=== PATIENT | male | born 1955 | race Caucasian/White ===

== ENCOUNTER 2017-03-01 00:58 | Emergency (ER) | payer BC ==
[2017-03-01] MEDS ORDERED: Acetaminophen/HYDROcodone 325-7.5 MG Tab PO ONE (01:23)
[2017-03-01] MEDS ORDERED: Lidocaine 2% Viscous Solution 15 ML Cup PO ONE (01:23)
[2017-03-01] MEDS ORDERED: Benzocaine 20% Topical Spray UD MUCMEM ONE (01:23)
--- NOTE | 2017-03-01 01:30 | EDM.PDOC ---
ED HPI GENERAL MEDICAL PROBLEM - General Chief Complaint: General Stated Complaint: TOOTH PAIN/INFECTION Time Seen by Provider: 03/01/17 01:12 - History of Present Illness INITIAL COMMENTS - FREE TEXT/NARRATIVE: HISTORY AND PHYSICAL: History of present illness: The patient is a 61-year-old male with a history of hypertension who is not following with a provider where he is from, [facility], as his provider left the practice and he did not reconnect with another provider; he also states that he had a filling on his right upper premolar tooth that fell out several weeks ago and he is now having new pain to the area the last 2 days. The patient says that after the filling fell out he was using temporary paced to try to help with the pain but it has increased over the last 2 days and is making him nauseated. He has had no swelling there and he is able to eat and drink. The patient states that as for his blood pressure he monitors it at home and the systolic is usually 150 but over the last 2 weeks he has noticed has been increasing and as been as high as 180/110 at home. The patient is just visiting here and is not staying here longer than 1 week. The patient denies headache blurred vision neurosensory changes or weakness in extremities chest pain shortness of breath abdominal pain or urinary issues. Review of systems: As per history of present illness and below otherwise all systems reviewed and negative. Past medical history: As per history of present illness and as reviewed below otherwise noncontributory. Surgical history: As per history of present illness and as reviewed below otherwise noncontributory. Social history: No reported history of drug or alcohol abuse. Family history: As per history of present illness and as reviewed below otherwise noncontributory. Physical exam: Gen.: Well-developed overweight man who is nontoxic and vital signs of the note by me. HEENT: Atraumatic, normocephalic, pupils reactive, negative for conjunctival pallor or scleral icterus, mucous membranes moist, throat clear, neck supple, nontender, trachea midline. Her multiple areas of dental disease appreciated in the left upper right upper and right lower mouth area with dental paste seen in a variety of areas. The tooth in question is a right upper premolar but there is no surrounding swelling and only mild tenderness of palpation. He has no facial swelling or lymphadenopathy. There is some swelling at the gumline at the left upper premolar area but he states that is not tender. Lungs: Clear to auscultation, breath sounds equal bilaterally, chest nontender. Heart: S1S2, regular, negative for clicks, rubs, or JVD. Abdomen: Soft, nondistended, nontender. Negative for masses or hepatosplenomegaly. Negative for costovertebral tenderness. Pelvis: Stable nontender. Genitourinary: Deferred. Rectal: Deferred. Extremities: Atraumatic, negative for cords or calf pain. Neurovascular unremarkable. No pedal edema Neuro: Awake, alert, oriented. Cranial nerves II through XII unremarkable. Cerebellum unremarkable. Motor and sensory unremarkable throughout. Exam nonfocal. Diagnostics: Patient was offered a workup for his elevated blood pressure and blood pressure management which she defers at this time Therapeutics: Richard Faulkner I discussed with the patient the need to see a dentist and we will give him a list of our local dentist that he can try to connect with before he leaves here to go home. We discussed his blood pressure at length and he is not exhibiting any end organ symptomatology ; he was offered a workup and blood pressure management but would like to decline that at this time and proceed to treat his tooth pain and then go home to see his provider there. He is aware of the risks and accepts those. I advised him on dietary restrictions with sodium. Impression: Dental pain/dental caries, poorly controlled hypertension Definitive disposition and diagnosis as appropriate pending reevaluation and review of above. tooth Pain Score (Numeric/FACES): 10 - Related Data Allergies Allergy/AdvReac Type Severity Reaction Status Date / Time No Known Allergies Allergy Verified 03/01/17 01:07 Home Meds: Home Meds Allopurinol [Zyloprim] 03/01/17 [History] Atenolol 25 mg PO BID 03/01/17 [History] Past Medical History HEENT History: Reports: None Cardiovascular History: Reports: Hypertension Respiratory History: Reports: None Gastrointestinal History: Reports: None Genitourinary History: Reports: None Musculoskeletal History: Reports: Gout Neurological History: Reports: None Psychiatric History: Reports: None Endocrine/Metabolic History: Reports: None Dermatologic History: Reports: None - Infectious Disease History Infectious Disease History: Reports: Chicken Pox, Shingles Social & Family History - Family History Family Medical History: Noncontributory - Tobacco Use Smoking Status *Q: Never Smoker - Recreational Drug Use Recreational Drug Use: No ED ROS GENERAL - Review of Systems Review Of Systems: ROS reveals no pertinent complaints other than HPI. ED EXAM, GENERAL - Physical Exam Exam: See Below (See dictation) Course - Vital Signs Last Recorded V/S: Last Vital Signs Temp 36.4 C 03/01/17 01:09 Pulse 52 L 03/01/17 01:09 Resp 18 03/01/17 01:09 BP 249/110 H 03/01/17 01:09 Pulse Ox 97 03/01/17 01:09 - Orders/Labs/Meds Orders: Active Orders 24 hr Category Date Time Status Acetaminophen/HYDROcodone [Windsor 325-7.5 MG] Med 03/01/17 01:23 Once 1 tab PO ONETIME ONE Benzocaine [Hurricaine One 20%] Med 03/01/17 01:23 Once 2 each MUCMEM ONETIME ONE Lidocaine 2% [Xylocaine 2% Viscous] Med 03/01/17 01:23 Once 15 ml PO ONETIME ONE Departure - Departure Time of Disposition: 01:29 Disposition: Home, Self-Care 01 Condition: Good Clinical Impression: Pain, dental, Poorly-controlled hypertension - Discharge Information Forms: ED Department Discharge Additional Instructions: The following information is given to patients seen in the emergency department who are being discharged to home. This information is to outline your options for follow-up care. We provide all patients seen in our emergency department with a follow-up referral. The need for follow-up, as well as the timing and circumstances, are variable depending upon the specifics of your emergency department visit. If you don't have a primary care physician on staff, we will provide you with a referral. We always advise you to contact your personal physician following an emergency department visit to inform them of the circumstance of the visit and for follow-up with them and/or the need for any referrals to a consulting specialist. The emergency department will also refer you to a specialist when appropriate. This referral assures that you have the opportunity for followup care with a specialist. All of these measure are taken in an effort to provide you with optimal care, which includes your followup. Under all circumstances we always encourage you to contact your private physician who remains a resource for coordinating your care. When calling for followup care, please make the office aware that this follow-up is from your recent emergency room visit. If for any reason you are refused follow-up, please contact the [facility] emergency department at and ask to speak to the emergency department charge nurse. [facility] Primary care- Internal Medicine and Family [place] [phone] [place] [id number] Please take the antibiotics and pain medication you were prescribed from [facility] Meds --- amoxicillin and Windsor--- as directed and also use the dental balls you have been given here in the emergency department as needed. Use ice for any swelling of her face. Please call and connect with the dentist for definitive care and treatment in the next few days and return here as needed and as discussed. Also connect with one of our clinic physicians if you would like to have your blood pressure evaluated and again return here as needed and as discussed ;watch sodium in the diet - My Orders Last 24 Hours: My Active Orders 03/01/17 01:23 Acetaminophen/HYDROcodone [Windsor 325-7.5 MG] 1 tab PO ONETIME ONE Benzocaine [Hurricaine One 20%] 2 each MUCMEM ONETIME ONE Lidocaine 2% [Xylocaine 2% Viscous] 15 ml PO ONETIME ONE - Assessment/Plan Last 24 Hours: My Active Orders 03/01/17 01:23 Acetaminophen/HYDROcodone [Windsor 325-7.5 MG] 1 tab PO ONETIME ONE Benzocaine [Hurricaine One 20%] 2 each MUCMEM ONETIME ONE Lidocaine 2% [Xylocaine 2% Viscous] 15 ml PO ONETIME ONE
[2017-03-01 01:58] VITALS: BP 229/114
== END 2017-03-01 01:58 | disposition home or self-care (01) ==
LOC: MW.ED 00:58
DX: K02.9 Dental caries, unspecified (principal); I10 Essential (primary) hypertension; R11.0 Nausea
CPT/HCPCS: 99283; A9270